=== PATIENT | female | born 1985 | race Caucasian/White ===

== ENCOUNTER 2019-11-25 20:44 | Emergency (ER) | payer MEDICAID ==
[~2019-11-25] VITALS: Ht 157.5 cm; Wt 48.5 kg
[2019-11-25 20:58] VITALS: BP 120/37; Ht 157.5 cm; Wt 48.5 kg
== END 2019-11-25 21:35 | disposition home or self-care (01) ==
LOC: ED 20:44
DX: L03.116 Cellulitis of left lower limb (principal); W57.XXXA Bitten or stung by nonvenomous insect and other nonvenomous arthropods, initial encounter; Y93.E8 Activity, other personal hygiene; Y92.59 Other trade areas as the place of occurrence of the external cause; Y99.8 Other external cause status

== ENCOUNTER 2020-01-03 13:18 | Emergency (ER) | payer MEDICAID ==
[~2020-01-03] VITALS: Ht 157.5 cm; Wt 47.6 kg
[2020-01-03 13:48] VITALS: Ht 157.5 cm; Wt 47.6 kg
[2020-01-03 15:43] VITALS: BP 107/77
== END 2020-01-03 15:43 | disposition home or self-care (01) ==
LOC: ED 13:18
DX: M77.11 Lateral epicondylitis, right elbow (principal)
CPT/HCPCS: J1885

== ENCOUNTER 2020-03-02 20:11 | Emergency (ER) | payer MEDICAID ==
[2020-03-02 21:39] VITALS: BP 108/72
== END 2020-03-02 21:39 | disposition home or self-care (01) ==
LOC: ED 20:11
DX: S51.852A Open bite of left forearm, initial encounter (principal); S51.851A Open bite of right forearm, initial encounter; Z41.1 Encounter for cosmetic surgery; W57.XXXA Bitten or stung by nonvenomous insect and other nonvenomous arthropods, initial encounter; Y93.89 Activity, other specified; Y92.89 Other specified places as the place of occurrence of the external cause; Y99.8 Other external cause status